=== PATIENT | female | born 2000 | race Hispanic/Latino ===

== ENCOUNTER 2022-07-26 18:17 | Emergency (ER) | payer BC ==
[~2022-07-26] VITALS: Ht 157.5 cm; Wt 61.7 kg
[2022-07-26] MEDS ORDERED: LIDOCAINE HCL 1% LOCAL INJ 20 ML VIAL INJ ONE (18:45)
[2022-07-26 18:57] LABS: BASOPHILS % 0.3 % (0.0-1.0); EOSINOPHILS # (AUTO) 0.1 (0.0-0.4); EOSINOPHILS % 1.2 % (0.0-6.0); HEMATOCRIT 50.8 % (34.2-44.1); HEMOGLOBIN 15.9 g/dL (12.0-16.0); LYMPHOCYTES # (AUTO) 1.9 (1.0-3.2); LYMPHOCYTES % 18.1 % (18.0-39.1); MEAN CORPUSCULAR HEMOGLOBIN 27.8 pg (28-32); MEAN CORPUSCULAR HGB CONC 31.3 g/dL (31-35); MONOCYTES # (AUTO) 0.5 (0.2-0.8); MONOCYTES % 4.7 % (4.4-11.3); NEUTROPHILS # (AUTO) 7.7 (2.1-6.9); NEUTROPHILS % 75.5 % (38.7-80.0); PLATELET COUNT 520 x10e3/uL (140-360); RED BLOOD COUNT 5.71 x10e6/uL (3.6-5.1); RED CELL DISTRIBUTION WIDTH 12.6 % (11.7-14.4)
[2022-07-26 19:18] LABS: ALBUMIN 3.9 g/dL (3.5-5.0); ALBUMIN/GLOBULIN RATIO 0.7 (0.8-2.0); ANION GAP 18.9 mmol/L (8-16); CREATININE, SERUM 0.71 mg/dL (0.57-1.11); POTASSIUM 3.9 mmol/L (3.5-5.1)
[2022-07-26] MEDS ORDERED: ANAPROX DS550 MG PO (19:21)
[2022-07-26] MEDS ORDERED: ACETAMINOPHEN-1 EAC4 PO (19:21)
[2022-07-26] MEDS ORDERED: PREDNISONE50 MG PO (19:21)
[2022-07-26 19:28] VITALS: BP 120/84
== END 2022-07-26 19:30 | disposition home or self-care (01) ==
LOC: ER 18:30
DX: M25.561 Pain in right knee (principal); M06.9 Rheumatoid arthritis, unspecified
CPT/HCPCS: 20610; 36415; 80053; 85025; 85651; 86140; 99284; J2001